=== PATIENT | female | born 1995 | race Caucasian/White ===

== ENCOUNTER 2017-01-24 16:28 | Observation (INO) | payer OTHER ==
[~2017-01-24] VITALS: Ht 157.5 cm; Wt 47.4 kg
[~2017-01-24 16:28] MED LIST: BACLOFEN10 MG PO; FLEXERIL10 MG PO; METHIMAZOLE5 MG PO; MOTRIN600 MG PO; OMEPRAZOLE40 M1 PO; SKELAXIN800 MG PO; SULFAMETHOXAZO1 EAC4 PO
[2017-01-24 17:04] LABS: HEMATOCRIT 44.8 % (36.0-46.0); MCH 30.9 PG (29.0-34.0); MCHC 34.6 G/DL (30.0-36.0); MCV 89.4 FL (83-99); MEAN PLAT.VOLUME 9.8 uM^3 (9.5-12.4); PLATELET COUNT 343 K/uL (156-360); RBC DIS.WIDTH-SD 42.1 % (39-53); RED BLOOD COUNT 5.01 M/uL (3.80-5.20); WHITE BLOOD COUNT 13.4 K/uL (4.1-10.2)
[2017-01-24 17:18] LABS: CHLORIDE 105 mEq/L (99-109); POTASSIUM 3.8 mEq/L (3.7-5.4); SODIUM 138 mEq/L (136-147)
[2017-01-24 17:20] LABS: GLUCOSE 142 mg/dL (70-99)
[2017-01-24 17:21] LABS: ANION GAP 10 MEQ/L (2-14)
[2017-01-24 17:22] LABS: TOTAL BILIRUBIN 0.6 mg/dL (0.0-1.0)
[2017-01-24 17:23] LABS: ALKALINE PHOSPHATASE 61 IU/L (3-129)
[2017-01-24 17:24] LABS: GFR ESTIMATE (CALCULATED) > 59 mL/min/
[2017-01-24 17:25] LABS: UREA NITROGEN (BUN) 7 mg/dL (9-23)
[2017-01-24 17:26] LABS: QUANTITATIVE HCG < 4.0 MIU/ML
[2017-01-24 17:27] LABS: LIPASE 55 U/L (1.0-51.0)
[2017-01-24 19:24] LABS: ADD MIUA? YES; BILIRUBIN NEGATIVE; BLOOD NEGATIVE; COLOR YELLOW ((YELLOW)); GLUCOSE (STRIP) NEGATIVE; KETONES NEGATIVE; LEUKOCYTES NEGATIVE; NITRITE NEGATIVE; PROTEIN (STRIP) NEGATIVE; UROBILINOGEN 0.2 MG/DL (0.2-1.0)
[2017-01-24 19:27] LABS: SPECIFIC GRAVITY 1.046 (1.000-1.030)
[2017-01-24 19:36] LABS: BACTERIA NONE SEEN /HPF; EPITHELIAL CELLS 1+ /HPF; MUCUS NONE SEEN /LPF; RED BLOOD CELLS 0-5 /HPF (0-5); UCUL ADDED? NO; WHITE BLOOD CELLS 0-5 /HPF (0-5)
[2017-01-24] MEDS ORDERED: SUCRALFATE1 GM PO (20:06)
[2017-01-24 20:20] LABS: AMPHETAMINE NEGATIVE (500 ng/mL); BARBITURATES NEGATIVE (200 ng/mL); BENZODIAZEPINES NEGATIVE (150 ng/mL); COCAINE PRESUMPTIVE POSITIVE (150 ng/mL); INTERNAL CONTROLS VALID? YES; METHADONE NEGATIVE (200 ng/mL); METHAMPHETAMINE NEGATIVE (500 ng/mL); OPIATES (MORPHINE) PRESUMPTIVE POSITIVE (100 ng/mL); OXYCODONE PRESUMPTIVE POSITIVE (100 ng/mL); PHENCYCLIDINE NEGATIVE (25 ng/mL); PROPOXYPHENE NEGATIVE (300 ng/mL); THC CANNABINOIDS PRESUMPTIVE POSITIVE (50 ng/mL); TRICYCLIC ANTIDEPRESSANTS NEGATIVE (300 ng/mL)
[2017-01-24 20:21] LABS: ADD MEDTOX COMMENT Y
[2017-01-24] MEDS ORDERED: TAPAZOLE10 MG PO (20:22)
[2017-01-24 20:54] VITALS: BP 117/80
[2017-01-25 00:10] VITALS: BP 136/82
[2017-01-25 04:20] VITALS: BP 127/61
[2017-01-25 08:00] VITALS: BP 102/66
[2017-01-25 11:45] LABS: CHLAMYDIA TRACHOMATIS NEGATIVE; NEISSERIA GONORRHOEAE NEGATIVE
[2017-01-25] MEDS ORDERED: ONDANSETRON ODT4 MG PO (12:20)
[2017-01-25] MEDS ORDERED: CLONIDINE HCL0.1 MG PO (12:20)
[2017-01-25] MEDS ORDERED: DICYCLOMINE HCL10 MG PO (12:20)
== END 2017-01-25 13:10 | disposition home or self-care (01) ==
LOC: EME 16:28 → EDOF 20:02 → 5WEST 20:02 → EDOF 20:02 → 5WEST 20:42
PROVIDERS: Nurse Practitioner Family; Physician Assistant Medical
DX: R11.2 Nausea with vomiting, unspecified (principal); R10.9 Unspecified abdominal pain; E05.00 Thyrotoxicosis with diffuse goiter without thyrotoxic crisis or storm; K21.9 Gastro-esophageal reflux disease without esophagitis; F17.210 Nicotine dependence, cigarettes, uncomplicated; F12.10 Cannabis abuse, uncomplicated; F14.10 Cocaine abuse, uncomplicated; F11.20 Opioid dependence, uncomplicated
CPT/HCPCS: 74177; 80053; 81003; 83690; 84443; 84702; 84999; 85027; 87210; 87491; 87591; 99281; 99285; G0378; J1885; J2270; J2405; J3010; J7030